=== PATIENT | female | born 1950 | race African-American/Black ===

== ENCOUNTER 2018-01-17 18:26 | Emergency (ER) | payer OTHER ==
[2018-01-17] MEDS ORDERED: HYDROCODONE/APAP 5/325 MG TAB ONE (20:38)
--- NOTE | 2018-01-17 20:45 | RAD REPORT ---
EXAM DESCRIPTION: RAD - Lumbar Spine 3 Views - 01/17/2018 8:37 pm CLINICAL HISTORY: Back pain FINDINGS: Minimal anterior subluxation L4 on L5 No fracture or dislocation is seen. Mild spondylosis involves the lumbar spine
--- NOTE | 2018-01-17 21:04 | EDPHYS ---
Physician Documentation [facility] Name: Rochelle Schmitt Age: 67 yrs Sex: Female : 1950 Arrival Date: 01/17/2018 Time: 18:29 Bed 15 Private MD: ED Physician Daniel Hernández HPI: 01/17 20:59 This 67 yrs old Black Female presents to ER via Wheelchair with complaints of Fall wa Injury, Back Pain. 20:59 Details of fall: The patient fell from an upright position, while walking. Onset: The wa symptoms/episode began/occurred just prior to arrival. Associated injuries: The patient sustained injury to the low back. Severity of symptoms: At their worst the symptoms were moderate, in the emergency department the symptoms are unchanged. The patient has not experienced similar symptoms in the past. The patient has not recently seen a physician. denies LOC. states slipped and fell. no LOC. Historical: - Allergies: 18:33 PENICILLINS; sv - PMHx: 18:33 CHF; Hypertension; sv - PSHx: 18:33 None; sv - Immunization history:: Adult Immunizations up to date. - Social history:: Smoking status: Patient/guardian denies using tobacco. - Ebola Screening: : No symptoms or risks identified at this time. - Family history:: not pertinent. - Hospitalizations: : No recent hospitalization is reported. ROS: 21:00 Constitutional: Negative for fever, chills, and weight loss, Eyes: Negative for injury, wa pain, redness, and discharge, ENT: Negative for injury, pain, and discharge, Neck: Negative for injury, pain, and swelling, Cardiovascular: Negative for chest pain, palpitations, and edema, Respiratory: Negative for shortness of breath, cough, wheezing, and pleuritic chest pain, Abdomen/GI: Negative for abdominal pain, nausea, vomiting, diarrhea, and constipation, : Negative for injury, bleeding, discharge, and swelling, MS/Extremity: Negative for injury and deformity, Skin: Negative for injury, rash, and discoloration, Neuro: Negative for headache, weakness, numbness, tingling, and seizure, Psych: Negative for depression, anxiety, suicide ideation, homicidal ideation, and hallucinations. 21:00 Back: Positive for pain with movement, of the lumbar area. 21:00 All other systems are negative. Exam: 21:01 Constitutional: This is a well developed, well nourished patient who is awake, alert, wa and in no acute distress. Head/Face: Normocephalic, atraumatic. Eyes: Pupils equal round and reactive to light, extra-ocular motions intact. Lids and lashes normal. Conjunctiva and sclera are non-icteric and not injected. Cornea within normal limits. Periorbital areas with no swelling, redness, or edema. ENT: Nares patent. No nasal discharge, no septal abnormalities noted. Tympanic membranes are normal and external auditory canals are clear. Oropharynx with no redness, swelling, or masses, exudates, or evidence of obstruction, uvula midline. Mucous membranes moist. Neck: Trachea midline, no thyromegaly or masses palpated, and no cervical lymphadenopathy. Supple, full range of motion without nuchal rigidity, or vertebral point tenderness. No Meningismus. Chest/axilla: Normal chest wall appearance and motion. Nontender with no deformity. No lesions are appreciated. Cardiovascular: Regular rate and rhythm with a normal S1 and S2. No gallops, murmurs, or rubs. Normal PMI, no JVD. No pulse deficits. Respiratory: Lungs have equal breath sounds bilaterally, clear to auscultation and percussion. No rales, rhonchi or wheezes noted. No increased work of breathing, no retractions or nasal flaring. Abdomen/GI: Soft, non-tender, with normal bowel sounds. No distension or tympany. No guarding or rebound. No evidence of tenderness throughout. Skin: Warm, dry with normal turgor. Normal color with no rashes, no lesions, and no evidence of cellulitis. MS/ Extremity: Pulses equal, no cyanosis. Neurovascular intact. Full, normal range of motion. Neuro: Awake and alert, GCS 15, oriented to person, place, time, and situation. Cranial nerves II-XII grossly intact. Motor strength 5/5 in all extremities. Sensory grossly intact. Cerebellar exam normal. Normal gait. Psych: Awake, alert, with orientation to person, place and time. Behavior, mood, and affect are within normal limits. 21:01 Back: pain, that is moderate, of the lumbar area. Vital Signs: 18:33 BP 146 / 73; Pulse 75; Resp 18; Temp 98; Pulse Ox 99% ; Weight 63.5 kg; Height 5 ft. 5 sv in. (165.10 cm); Pain 9/10; 19:30 BP 129 / 68; Pulse 69; Resp 18 S; Pulse Ox 100% on R/A; cc3 20:15 BP 114 / 59; Pulse 68; Resp 18 S; Pulse Ox 100% on R/A; cc3 21:05 BP 118 / 57; Pulse 68; Resp 17 S; Pulse Ox 100% on R/A; cc3 18:33 Body Mass Index 23.30 (63.50 kg, 165.10 cm) sv MDM: 19:11 Patient medically screened. id 21:01 Differential diagnosis: contusion, fracture, sprain, strain. Data reviewed: vital wa signs, nurses notes. Test interpretation: by ED physician or midlevel provider: LS spine x-ray: No acute fracture. 01/17 20:01 Order name: Lumbar Spine (3 Views) XRAY; Complete Time: 20:58 id Administered Medications: 20:45 Drug: [place] 5 mg-325 mg 1 tabs Route: PO; cc3 21:20 Follow up: Response: No adverse reaction; Pain is decreased cc3 Disposition: 01/17/18 21:03 Discharged to Home. Impression: Fall, lumbar sprain. - Condition is Stable. - Discharge Instructions: Fall Prevention in the Home, [id number], Back Injury Prevention. - Medication Reconciliation Form, Thank You Letter, Antibiotic Education, Prescription Opioid Use form. - Follow up: Private Physician; When: 2 - 3 days; Reason: Recheck today's complaints. - Problem is new. - Symptoms have improved. - Notes: take pain medication as needed as prescribed. follow up with your doctor within 3-5 days if symptoms do not improve Signatures: Dispatcher [employer] EDSavanah Hedrick RN RN Daniel Hernández MD MD wa Cordel, Charlene cc3 Corrections: (The following items were deleted from the chart) 21:26 21:03 01/17/2018 21:03 Discharged to Home. Impression: Fall, lumbar sprain. Condition cc3 is Stable. Forms are Medication Reconciliation Form, Thank You Letter, Antibiotic Education, Prescription Opioid Use. Follow up: Private Physician; When: 2 - 3 days; Reason: Recheck today's complaints. Problem is new. Symptoms have improved. wa
--- NOTE | 2018-01-17 21:04 | ER ---
Nurse's Notes [facility] Name: Rochelle Schmitt Age: 67 yrs Sex: Female : 1950 Arrival Date: 01/17/2018 Time: 18:29 Bed 15 Private MD: Diagnosis: Fall, lumbar sprain Presentation: 01/17 18:31 Presenting complaint: Patient states: slip and fall today and landed on her left side. sv c/o left back and knee pain. Denies head injury. Care prior to arrival: None. Mechanism of Injury: Fall from standing position. 18:31 Method Of Arrival: Wheelchair sv 18:31 Acuity: NEHA 4 sv 18:32 Transition of care: patient was not received from another setting of care. Onset of sv symptoms was January 17, 2018 at 17:00. 19:15 Risk Assessment: Do you want to hurt yourself or someone else? Patient reports no cc3 desire to harm self or others. Initial Sepsis Screen: Does the patient meet any 2 criteria? No. Patient's initial sepsis screen is negative. Does the patient have a suspected source of infection? No. Patient's initial sepsis screen is negative. Trauma Activation: Not Applicable Physician: ED Physician; Name: ; Notified At: ; Arrived At: Physician: General Surgeon; Name: ; Notified At: ; Arrived At: Physician: Radiology; Name: ; Notified At: ; Arrived At: Physician: Respiratory; Name: ; Notified At: ; Arrived At: Physician: Lab; Name: ; Notified At: ; Arrived At: Historical: - Allergies: 18:33 PENICILLINS; sv - PMHx: 18:33 CHF; Hypertension; sv - PSHx: 18:33 None; sv - Immunization history:: Adult Immunizations up to date. - Social history:: Smoking status: Patient/guardian denies using tobacco. - Ebola Screening: : No symptoms or risks identified at this time. - Family history:: not pertinent. - Hospitalizations: : No recent hospitalization is reported. Screenin:15 Abuse screen: Denies threats or abuse. Denies injuries from another. Nutritional cc3 screening: No deficits noted. Tuberculosis screening: No symptoms or risk factors identified. Fall Risk Ambulatory Aid- None/Bed Rest/Nurse Assist (0 pts). Gait- Normal/Bed Rest/Wheelchair (0 pts) Mental Status- Oriented to own ability (0 pts). Assessment: 19:15 General: Appears in no apparent distress. comfortable, Behavior is calm, cooperative, cc3 appropriate for age. Pain: Complains of pain in generalized. Neuro: Level of Consciousness is awake, alert, obeys commands, Oriented to person, place, time, situation, Appropriate for age. EENT: No signs and/or symptoms were reported regarding the EENT system. Cardiovascular: Denies chest pain. Respiratory: Airway is patent Respiratory effort is even, unlabored, Respiratory pattern is regular, symmetrical. GI: No signs and/or symptoms were reported involving the gastrointestinal system. : No signs and/or symptoms were reported regarding the genitourinary system. Derm: No signs and/or symptoms reported regarding the dermatologic system. Musculoskeletal: Circulation, motion, and sensation intact. Range of motion: intact in all extremities. Injury Description: fall injury. 20:49 Reassessment: Patient appears in no apparent distress at this time. Patient and/or cc3 family updated on plan of care and expected duration. Pain level reassessed. Patient is alert, oriented x 3, equal unlabored respirations, skin warm/dry/pink. Patient came back from xray department. 21:20 Reassessment: Patient appears in no apparent distress at this time. Patient and/or cc3 family updated on plan of care and expected duration. Pain level reassessed. Patient is alert, oriented x 3, equal unlabored respirations, skin warm/dry/pink. Dr. Hernández discharged the patient home with prescription given. No IV cannula in situ. Patient left ER vitally stable by wheelchair assisted to the lobby to wait for her granddaughter. Vital Signs: 18:33 BP 146 / 73; Pulse 75; Resp 18; Temp 98; Pulse Ox 99% ; Weight 63.5 kg; Height 5 ft. 5 sv in. (165.10 cm); Pain 9/10; 19:30 BP 129 / 68; Pulse 69; Resp 18 S; Pulse Ox 100% on R/A; cc3 20:15 BP 114 / 59; Pulse 68; Resp 18 S; Pulse Ox 100% on R/A; cc3 21:05 BP 118 / 57; Pulse 68; Resp 17 S; Pulse Ox 100% on R/A; cc3 18:33 Body Mass Index 23.30 (63.50 kg, 165.10 cm) ED Course: 18:29 Patient arrived in ED. mr 18:32 Triage completed. 18:33 Arm band placed on. 19:11 Daniel Hernández MD is Attending Physician. vt 19:15 Patient has correct armband on for positive identification. Bed in low position. Call cc3 light in reach. Side rails up X 1. Pulse ox on. NIBP on. 19:44 Gris Santacruz is Primary Nurse. cc3 20:37 Lumbar Spine (3 Views) XRAY In Process Unspecified. EDMS 21:20 No provider procedures requiring assistance completed. Patient did not have IV access cc3 during this emergency room visit. Administered Medications: 20:45 Drug: [place] 5 mg-325 mg 1 tabs Route: PO; cc3 21:20 Follow up: Response: No adverse reaction; Pain is decreased cc3 Outcome: 21:03 Discharge ordered by . wa 21:20 Discharged to home via wheelchair. cc3 21:20 Condition: stable 21:20 Discharge instructions given to patient, Instructed on discharge instructions, follow up and referral plans. medication usage, Demonstrated understanding of instructions, follow-up care, medications, Prescriptions given X 1. 21:26 Patient left the ED. cc3 Signatures: Dispatcher [employer] Savanah Jasso RN RN [place] Connell mr Daniel Hernández MD MD wa Cordel, Charlene cc3
== END 2018-01-17 21:26 | disposition home or self-care (01) ==
LOC: ER 18:26
DX: S39.012A Strain of muscle, fascia and tendon of lower back, initial encounter (principal); W01.0XXA Fall on same level from slipping, tripping and stumbling without subsequent striking against object, initial encounter; Y93.01 Activity, walking, marching and hiking
CPT/HCPCS: 72100; 99284

== ENCOUNTER 2018-05-22 18:20 | Emergency (ER) | payer OTHER ==
[2018-05-22] MEDS ORDERED: hydrOXYzine HCl 25 MG TAB ONE (19:19)
--- NOTE | 2018-05-22 19:25 | ER ---
Nurse's Notes [facility] Name: Rochelle Schmitt Age: 67 yrs Sex: Female : 1950 Arrival Date: 05/22/2018 Time: 18:21 Bed 17 Private MD: Jesus Manuel Pace Diagnosis: Pruritus Presentation: 05/22 18:24 Presenting complaint: Patient states: itching all over x 2 months. Transition of care: ss patient was not received from another setting of care. Onset: The symptoms/episode began/occurred 2 month(s) ago. Anaphylaxis evaluation, no signs or symptoms of anaphylaxis were noted. Onset of symptoms was March 2018. Risk Assessment: Do you want to hurt yourself or someone else? Patient reports no desire to harm self or others. Initial Sepsis Screen: Does the patient meet any 2 criteria? No. Patient's initial sepsis screen is negative. Does the patient have a suspected source of infection? No. Patient's initial sepsis screen is negative. Care prior to arrival: None. 18:24 Method Of Arrival: Wheelchair ss 18:24 Acuity: NEHA 5 Triage Assessment: 18:27 General: Appears in no apparent distress. uncomfortable, Behavior is calm, cooperative, hj appropriate for age. Pain: Denies pain. 18:27 EENT: No signs and/or symptoms were reported regarding the EENT system. Neuro: Level of hj Consciousness is awake, alert, obeys commands, Oriented to person, place, time, situation, Appropriate for age. Cardiovascular: Capillary refill < 3 seconds Patient's skin is warm and dry. Respiratory: Airway is patent Respiratory effort is even, unlabored, Respiratory pattern is regular, symmetrical. GI: No signs and/or symptoms were reported involving the gastrointestinal system. : No signs and/or symptoms were reported regarding the genitourinary system. Derm: Reports itching. Musculoskeletal: No signs and/or symptoms reported regarding the musculoskeletal system. Historical: - Allergies: 18:25 PENICILLINS; ss - Home Meds: 18:25 enalapril maleate oral once daily [Active]; Lasix Oral once daily [Active]; hj hypertensive med [Active]; - PMHx: 18:25 CHF; Hypertension; ss - PSHx: 18:25 None; hj - Immunization history:: Adult Immunizations up to date. - Social history:: Smoking status: Patient/guardian denies using tobacco. - Ebola Screening: : Patient denies exposure to infectious person Patient denies travel to an Ebola-affected area in the 21 days before illness onset. Screenin:27 Abuse screen: Denies threats or abuse. Denies injuries from another. Nutritional hj screening: No deficits noted. Tuberculosis screening: No symptoms or risk factors identified. Fall Risk None identified. Assessment: 18:27 Respiratory: Airway is patent Respiratory effort is even, unlabored, Respiratory hj pattern is regular, Breath sounds are clear bilaterally. 18:27 Reassessment: see triage for assessment;. hj 19:36 Reassessment: Patient appears in no apparent distress at this time. Patient and/or ed1 family updated on plan of care and expected duration. Pain level reassessed. Patient is alert, oriented x 3, equal unlabored respirations, skin warm/dry/pink. Patient states feeling better. Patient states symptoms have improved. Respiratory: Airway is patent Respiratory effort is even, unlabored, Respiratory pattern is regular, symmetrical, Breath sounds are clear bilaterally. Denies cough, shortness of breath. Derm: Skin is intact, is healthy with good turgor, Skin is dry, Skin is normal, Skin temperature is warm No rash present Reports itching. Vital Signs: 18:25 BP 171 / 77; Pulse 76; Resp 18; Temp 98.4(TE); Pulse Ox 98% on R/A; Weight 108.86 kg; ss Height 5 ft. 5 in. (165.10 cm); Pain 0/10; 19:36 BP 148 / 72; Pulse 70; Resp 19; Pulse Ox 100% on R/A; Pain 0/10; ed1 18:25 Body Mass Index 39.94 (108.86 kg, 165.10 cm) ED Course: 18:21 Patient arrived in ED. mr 18:22 Jesus Manuel Pace MD is Private Physician. mr 18:25 Triage completed. ss 18:25 Arm band placed on right wrist. ss 18:27 Blake Mccoy, DARON is Primary Nurse. hj 18:28 Patient has correct armband on for positive identification. Bed in low position. Call hj light in reach. Side rails up X 1. Adult w/ patient. 18:31 Savanna Fontana FNP-C is PHCP. kb 18:31 Shabbir Walsh MD is Attending Physician. kb 19:04 Primary Nurse role handed off by Blake cMcoy, RN ed1 19:04 Racheal Nuñez, RN is Primary Nurse. ed1 19:23 Jesus Manuel Pace MD is Referral Physician. kb 19:36 No provider procedures requiring assistance completed. Patient did not have IV access ed1 during this emergency room visit. Administered Medications: 19:12 Drug: Atarax 25 mg Route: PO; ed1 19:38 Follow up: Response: No adverse reaction ed1 Outcome: 19:24 Discharge ordered by MD. kb 19:36 Discharged to home via wheelchair, with family. ed1 19:36 Condition: good 19:36 Discharge instructions given to patient, family, Instructed on discharge instructions, follow up and referral plans. medication usage, Demonstrated understanding of instructions, follow-up care, medications, Prescriptions given X 2. 19:38 Patient left the ED. ed1 Signatures: Savanna Fontana, DELILAH MCCRAY-[place] Servin Shelby, RN RN Racheal Nuñez, RN RN ed1 Blake Mccoy, RN RN
--- NOTE | 2018-05-22 19:25 | EDPHYS ---
Physician Documentation [facility] Name: Rochelle Schmitt Age: 67 yrs Sex: Female : 1950 Arrival Date: 05/22/2018 Time: 18:21 Bed 17 Private MD: Jesus Manuel Pace ED Physician Shabbir Walsh HPI: 05/22 19:21 This 67 yrs old Black Female presents to ER via Wheelchair with complaints of Itching. kb 19:21 Onset: The symptoms/episode began/occurred 2 month(s) ago. Associated signs and kb symptoms: Pertinent positives: itching. Severity of symptoms: At their worst the symptoms were moderate in the emergency department the symptoms are unchanged. The patient has not experienced similar symptoms in the past. The patient has not recently seen a physician. Pt presents c/o itching for 2 months. States the itching is worse when she gets hot. Denies rash.. Historical: - Allergies: 18:25 PENICILLINS; ss - Home Meds: 18:25 enalapril maleate oral once daily [Active]; Lasix Oral once daily [Active]; hj hypertensive med [Active]; - PMHx: 18:25 CHF; Hypertension; ss - PSHx: 18:25 None; hj - Immunization history:: Adult Immunizations up to date. - Social history:: Smoking status: Patient/guardian denies using tobacco. - Ebola Screening: : Patient denies exposure to infectious person Patient denies travel to an Ebola-affected area in the 21 days before illness onset. ROS: 19:21 Constitutional: Negative for fever, chills, and weight loss, ENT: Negative for injury, kb pain, and discharge, Neck: Negative for injury, pain, and swelling, Cardiovascular: Negative for chest pain, palpitations, and edema, Respiratory: Negative for shortness of breath, cough, wheezing, and pleuritic chest pain, Abdomen/GI: Negative for abdominal pain, nausea, vomiting, diarrhea, and constipation, Back: Negative for injury and pain, : Negative for injury, bleeding, discharge, and swelling, MS/Extremity: Negative for injury and deformity, Skin: Negative for injury, rash, and discoloration, Neuro: Negative for headache, weakness, numbness, tingling, and seizure. Exam: 19:21 Constitutional: This is a well developed, well nourished patient who is awake, alert, kb and in no acute distress. Head/Face: Normocephalic, atraumatic. ENT: Nares patent. No nasal discharge, no septal abnormalities noted. Tympanic membranes are normal and external auditory canals are clear. Oropharynx with no redness, swelling, or masses, exudates, or evidence of obstruction, uvula midline. Mucous membranes moist. Neck: Trachea midline, no thyromegaly or masses palpated, and no cervical lymphadenopathy. Supple, full range of motion without nuchal rigidity, or vertebral point tenderness. No Meningismus. Chest/axilla: Normal chest wall appearance and motion. Nontender with no deformity. No lesions are appreciated. Cardiovascular: Regular rate and rhythm with a normal S1 and S2. No gallops, murmurs, or rubs. Normal PMI, no JVD. No pulse deficits. Respiratory: Lungs have equal breath sounds bilaterally, clear to auscultation and percussion. No rales, rhonchi or wheezes noted. No increased work of breathing, no retractions or nasal flaring. Abdomen/GI: Soft, non-tender, with normal bowel sounds. No distension or tympany. No guarding or rebound. No evidence of tenderness throughout. Skin: Warm, dry with normal turgor. Normal color with no rashes, no lesions, and no evidence of cellulitis. MS/ Extremity: Pulses equal, no cyanosis. Neurovascular intact. Full, normal range of motion. Neuro: Awake and alert, GCS 15, oriented to person, place, time, and situation. Cranial nerves II-XII grossly intact. Motor strength 5/5 in all extremities. Sensory grossly intact. Cerebellar exam normal. Normal gait. Vital Signs: 18:25 BP 171 / 77; Pulse 76; Resp 18; Temp 98.4(TE); Pulse Ox 98% on R/A; Weight 108.86 kg; ss Height 5 ft. 5 in. (165.10 cm); Pain 0/10; 19:36 BP 148 / 72; Pulse 70; Resp 19; Pulse Ox 100% on R/A; Pain 0/10; ed1 18:25 Body Mass Index 39.94 (108.86 kg, 165.10 cm) ss MDM: 18:31 Patient medically screened. kb 19:06 Data reviewed: vital signs, nurses notes. Data interpreted: Pulse oximetry: on room air kb is 98 %. Interpretation: normal. Counseling: I had a detailed discussion with the patient and/or guardian regarding: the historical points, exam findings, and any diagnostic results supporting the discharge/admit diagnosis, the need for outpatient follow up, a family practitioner, to return to the emergency department if symptoms worsen or persist or if there are any questions or concerns that arise at home. Administered Medications: 19:12 Drug: Atarax 25 mg Route: PO; ed1 19:38 Follow up: Response: No adverse reaction ed1 Disposition: 05/23 07:30 Co-signature as Attending Physician, Shabbir Walsh MD. rn Disposition: 05/22/18 19:24 Discharged to Home. Impression: Pruritus. - Condition is Stable. - Discharge Instructions: Pruritus. - Prescriptions for Elimite 5 % Topical Cream - apply 1 application by TOPICAL route one time Wash after 12 hours.; 60 gram. Hydroxyzine HCl 25 mg Oral Tablet - take 1 tablet by ORAL route every 6 hours As needed; 30 tablet. - Medication Reconciliation Form, Thank You Letter, Antibiotic Education, Prescription Opioid Use form. - Follow up: Emergency Department; When: As needed; Reason: Worsening of condition. Follow up: Jesus Manuel Pace MD; When: 2 - 3 days; Reason: Recheck today's complaints, Continuance of care, Re-evaluation by your physician. Signatures: Savanna Fontana, FIBERGLASS INSULATION INSTALLER-C FIBERGLASS INSULATION INSTALLER-Ckb Shabbir Walsh MD MD rn Smirch, Shelby, RN RN Racheal Nuñez RN RN ed1 Blake Mccoy RN RN Corrections: (The following items were deleted from the chart) 05/22 19:38 19:24 05/22/2018 19:24 Discharged to Home. Impression: Pruritus. Condition is Stable. ed1 Forms are Medication Reconciliation Form, Thank You Letter, Antibiotic Education, Prescription Opioid Use. Follow up: Emergency Department; When: As needed; Reason: Worsening of condition. Follow up: Jesus Manuel Pace; When: 2 - 3 days; Reason: Recheck today's complaints, Continuance of care, Re-evaluation by your physician. kb
== END 2018-05-22 19:38 | disposition home or self-care (01) ==
LOC: ER 18:20
DX: L29.9 Pruritus, unspecified (principal); I10 Essential (primary) hypertension; I50.9 Heart failure, unspecified; Z88.0 Allergy status to penicillin
CPT/HCPCS: 99283